=== PATIENT | female | born 1965 | race Caucasian/White ===

== ENCOUNTER 2024-02-22 15:12 | Observation (INO) | payer OTHER, SELFPAY ==
--- NOTE | ~2024-02-22 | XR_ITS ---
EXAMINATION: XR chest 2V DATE: 02/22/2024 16:17 INDICATION: Weakness. Low back pain. Abdominal pain. TECHNIQUE: Frontal and lateral views of the chest were obtained. COMPARISON: None. FINDINGS: There is no pneumonia, pleural effusion, or pneumothorax. The heart size is normal. IMPRESSION: 1. No acute cardiopulmonary disease. Reviewed, dictated and finalized at location A.
--- NOTE | ~2024-02-22 | CT_ITS ---
EXAMINATION: CT diagnostic chest wo con DATE: 02/22/2024 18:23 INDICATION: fall, pulmonary nodules, follow up CT abd TECHNIQUE: Computed tomography (CT) of the chest was performed with 100 mL Omnipaque-350 intravenous contrast. Automated exposure control and iterative reconstruction technique were employed. The dose-l ength product was 139.27 mGy-cm. COMPARISON: X-ray chest and CT abdomen pelvis, same date. FINDINGS: CHEST: Thoracic aorta: Dilation of the ascending aorta to 4.3 cm. Heavy aortic calcified plaque. Lung parenchyma and airways: Focal subsegmental consolidation in the right upper lung. Cystic change in the bilateral upper lobes, possible cystic bronchiectasis/post infectious or inflammatory change. Subtle groundglass opacities in the right upper lobe. Scattered tree-in-bud opacities throughout the lungs. Innumerable pulmonary nodules. Thoracic inlet, axillae and chest wall: 1.6 cm left thyroid nodule. Mediastinum: No mass or lymphadenopathy. Heart and pericardium: Normal heart size. Aortic valve calcification. Small volume pericardial fluid. Coronary artery calcifications: Heavy. Pleura: No effusion or mass. Upper abdomen: Please refer to the report on the concurrent CT abdomen and pelvis for further details . Thoracic bones: Numerous lytic lesions in the spine. Endplate deformities at T2, T5, T7, T11, and T12 . IMPRESSION: Infectious/inflammatory changes in the lungs, possibly secondary to atypical infection. Innumerable pulmonary nodules concerning for metastatic disease. Small pericardial effusion. 1.6 cm left thyroid nodule, recommend nonemergent, outpatient thyroid ultrasound for further characte rization. Multiple lytic lesions in the spine with corresponding endplate deformities probably representing pat hologic fractures. Reviewed, dictated and finalized at location K. IMPRESSION: Infectious/inflammatory changes in the lungs, possibly secondary to atypical in fection. Innumerable pulmonary nodules concerning for metastatic disease. Small pericardial effusion. 1.6 cm left thyroid nodule, recommend nonemergent, outpatient thyroid ultrasoun d for further characterization. Multiple lytic lesions in the spine with corresponding endplate deformities pro bably representing pathologic fractures.
--- NOTE | ~2024-02-22 | CT_ITS ---
EXAMINATION: CT brain wo/w con DATE: 02/23/2024 09:35 INDICATION: Metastatic cancer. Vision change. TECHNIQUE: Computed tomography (CT) of the head was performed without and with 100 mL Omnipaque 350 i ntravenous contrast. The mA was adjusted according to patient size. Iterative reconstruction techniqu e was employed. The dose-length product was 1362.00 mGy-cm. COMPARISON: None FINDINGS: There are scattered areas of low attenuation in the cerebral white matter, which is within normal limits for the patient's age. There are old infarcts in the thalami bilaterally. The ventricle s are normal in size. The orbits are normal. The paranasal sinuses are clear. The mastoid air cells are normal. IMPRESSION: 1. No evidence of metastatic disease. 2. 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 Reviewed, dictated and finalized at location A.
--- NOTE | ~2024-02-22 | CT_ITS ---
EXAMINATION: CT abdomen pelvis w con DATE: 02/22/2024 16:57 INDICATION: Generalized abdominal pain. Back pain. Nausea and vomiting. TECHNIQUE: Computed tomography (CT) of the abdomen and pelvis was performed with 100 mL Omnipaque 350 intravenous contrast. Automated exposure control and iterative reconstruction technique were employe d. The dose-length product was 420.50 mGy-cm. COMPARISON: None. FINDINGS: The visualized portions of the lung bases posteriorly mild atelectasis. There are numerous scattered pulmonary nodules measuring up to 11 mm. No pleural effusion. The heart size is normal. The re are coronary artery calcifications. There is a small pericardial effusion. The liver demonstrates surface nodularity, consistent with cirrhosis. There are multiple hypodense masses in the liver measu ring up to 9 mm. The gallbladder, spleen, pancreas, and adrenal glands are normal. There is a striate d nephrogram in right kidney. There is mild atrophy of left kidney upper pole. There are no dilated l oops of bowel. The appendix is normal. There is calcified atherosclerosis of the aorta and many of th e other arteries. There are no pathologically enlarged lymph nodes. There are widespread lytic lesio ns of bone. There is an acute pathologic burst fracture of L5. There are age-indeterminate pathologic compression fractures of T7, T11, T12, L1, L2, and L3. There is a pathologic fracture of right L3 tr ansverse process. IMPRESSION: 1. Widespread lytic bone lesions and numerous pulmonary nodules, consistent with metastatic disease. Chest CT is recommended. 2. Small pericardial effusion. 3. Numerous pathologic fractures in the spine, some of which are acute and some of which are age-inde terminate. 4. Cirrhosis of the liver. 5. Small liver masses, which may be cysts or metastatic disease. Reviewed, dictated and finalized at location A. IMPRESSION: 1. Widespread lytic bone lesions and numerous pulmonary nodules, consistent wit h metastatic disease. Chest CT is recommended. 2. Small pericardial effusion. 3. Numerous pathologic fractures in the spine, some of which are acute and some of which are age-indeterminate. 4. Cirrhosis of the liver. 5. Small liver masses, which may be cysts or metastatic disease.
[2024-02-22 15:29] VITALS: BP 114/62; PULSE 83; RESP 17; TEMP 36.4; O2SAT 98
--- NOTE | 2024-02-22 15:48 | ECG_ITS ---
Measurements Intervals [place] Rate: 84 P: 27 VT: 152 QRS: -13 QRSD: 92 T: 43 QT: 364 QTc: 432 Interpretive Statements SINUS RHYTHM CONSIDER INFERIOR INFARCT, AGE INDETERMINATE NONSPECIFIC ST & T-WAVE ABNORMALITY- ANTEROLAT/HIGH LAT LEADS ABNORMAL ECG NO PREVIOUS ECG AVAILABLE FOR COMPARISON Electronically Signed On 02-22-2024 16:31:35 CDT by Adelso Hernandez D.O.
--- NOTE | 2024-02-22 15:49 | ED.WEAKNESS ---
HPI - Weakness General Chief complaint: Weakness <Treasure Wise PA-C - Last Filed: 02/22/24 15:51> Stated complaint: weak, vomiting, back pain x 3 weeks <Treasure Wise PA-C - Last Filed: 02/22/24 15:51> Time Seen by Provider: 02/22/24 17:04 <Treasure Wise PA-C - Last Filed: 02/22/24 15:51> Focused HPI: 58-year-old female with history of hypertension and hyperlipidemia presents with her daughter at bedside for generalized weakness x3 weeks. Patient is reporting diffuse abdominal pain, low back pain, exertional dyspnea. States she has been evaluated 2 times since the onset of symptoms at [place] [facility] and has been prescribed muscle relaxers without improvement. States she has been having difficulty ambulating around her house secondary to symptoms. She she reports nausea and dry heaving but denies emesis, chest pain, dysuria or hematuria, diarrhea, lower extremity edema. She is also reporting a productive cough. Patient smokes about 1/2 pack a day. GENERAL: Well-appearing, well-nourished, and in no acute distress. HEAD: Normocephalic, atraumatic. CHEST: Clear to auscultation. ?No respiratory distress. ABD: diffuse abdominal tenderness without guarding, rebound or rigidity. No CVA tenderness. HEART: Regular rate and rhythm.? NEURO: ?Alert and oriented x3. Patient screened in triage and initial orders placed.? ?Additional care and disposition to be based upon?diagnostic testing and treatment. <Treasure Wise PA-C - Last Filed: 02/22/24 15:51> Related Data Home medications: Home Medications Medication Instructions Recorded Confirmed ergocalciferol (vitamin D2) 1,250 1,250 mcg PO WEEKLY 02/22/24 02/22/24 mcg (50,000 unit) capsule hydrocodone 10 mg-acetaminophen 1 tablet PO BID PRN Pain 02/22/24 02/22/24 325 mg tablet ibuprofen 800 mg tablet 800 mg PO Q8H PRN Pain 02/22/24 02/22/24 lisinopril 20 1 tablet PO DAILY 02/22/24 02/22/24 mg-hydrochlorothiazide 25 mg tablet pravastatin 40 mg tablet 40 mg PO DAILY 02/22/24 02/22/24 verapamil 240 mg tablet,extended 240 mg PO HS 02/22/24 02/22/24 release <Treasure Wise PA-C - Last Filed: 02/22/24 15:51> Allergies/Adverse reactions: Allergies Allergy/AdvReac Type Severity Reaction Status Date / Time sulfamethoxazole AdvReac Hives Verified 02/22/24 21:58 [From Bactrim] trimethoprim [From Bactrim] AdvReac Hives Verified 02/22/24 21:58 <Treasure Wise PA-C - Last Filed: 02/22/24 15:51> Review of Systems Review of Systems: All systems as dictated in HPI <SYLVIA Mancilla Last Filed: 02/23/24 02:06> [facility] Past Medical History Medical History: Medical History (Updated 02/23/24 @ 09:41 by Carisa Jaime APRN) Chronic alcohol abuse Continuous dependence on cigarette smoking Essential hypertension Hyperlipidemia Vitamin D deficiency <Treasure Wise PA-C - Last Filed: 02/22/24 15:51> Surgical History Surgical History: Surgical History (Updated 02/23/24 @ 09:41 by Carisa Jaime APRN) History of section <SYLVIA Simon Last Filed: 02/22/24 15:51> Family History Family History: Family History (Updated 02/23/24 @ 05:36 by Mable Pagan DO) Unknown Unknown family medical history The patient was orphaned at and grew up in a [facility] in [place]. <Treasure Wise PA-C - Last Filed: 02/22/24 15:51> Social History Social History: Social History (Updated 02/23/24 @ 05:38 by Mable Pagan DO) Social History: Patient was originally . She has been with her long-term boyfriend of 20 years. Her boyfriend is her payee on her [place] disability checks due to the patient's baseline intellectual disability. She has smoked a pack of cigarettes per day since she was a teenager. She had 4 children. She drinks at least a 6 pack of beer a day. She used to occasionally use marijuana but
[2024-02-22 16:11] LABS: Basophils Absolute Auto 0.1 K/mm3 (0.0-0.1); Basophils Percent Auto 0.5 % (0.2-1.2); Eosinophils Absolute Auto 0.3 K/mm3 (0-0.3); Eosinophils Percent Auto 2.1 % (0-4.4); Hematocrit 39.2 % (37.0-47.0); Hemoglobin 14.2 g/dL (12.0-15.0); Immature Granulocyte Absolute 0.12 K/mm3 (0.00-0.031); Immature Granulocyte Percent A 0.9 % (0-0.5); Lymphocytes Absolute Auto 1.56 K/mm3 (0.9-3.2); Mean Corpuscular HGB Conc 36.2 g/dl (32-36); Mean Corpuscular Hemoglobin 34.1 pg (26-34); Mean Platelet Volume 10.3 fl (7.4-10.4); Monocytes Percent Auto 7.5 % (2.6-8.5); Platelet Count Result 175 k/mm3 (150-375); Red Blood Count 4.17 M/mm3 (4.2-5.4); Red Cell Distribution Width 12.8 % (11.5-14.5)
[2024-02-22 16:22] LABS: Alanine Aminotransferase 24 U/L (6-35); Albumin Level 4.5 g/dL (3.5-5.1); Alkaline Phosphatase 119 U/L (38-126); Anion Gap 9 mmol/L (4-12); Aspartate Amino Transferase 41 U/L (14-36); Blood Urea Nitrogen 17 mg/dL (7-17); Calcium 12.1 mg/dL (8.4-10.2); Carbon Dioxide 27 mmol/L (22-30); Chloride 89 mmol/L (98-107); Estimated CRCL calculation 79 ml/min; Estimated Glomerular Filt Rate > 60; Glucose 105 mg/dL (65-110); Lactic Acid Reflex 1.9 mmol/L (0.7-2.0); Lipase 60 U/L (23-300); Potassium 3.1 mmol/L (3.4-5.0); Sodium 125 mmol/L (137-145)
[2024-02-22 16:33] LABS: NT Pro B Type Natriuretic Pept 202 pg/mL (19.9-100); Troponin I 0.025 ng/mL (0.000-0.034)
[2024-02-22 16:48] LABS: Influenza A QL RT-PCR Negative (Negative); Influenza B QL RT-PCR Negative (Negative); RSV RNA, RT-PCR Negative (Negative); SARS-CoV-2 RNA PCR Negative (Negative)
[2024-02-22] MEDS: IBUPROFEN 400 MG TABLET 800 MG PO (17:48)
[2024-02-22] MEDS: ACETAMINOPHEN 500 MG TABLET 650 MG PO (17:49)
[2024-02-22] MEDS: POTASSIUM CHLORIDE 20 MEQ ER TABLET 40 MEQ PO (20:07)
[2024-02-22 20:15] LABS: INR 1.3; Prothrombin Time 16.5 Seconds (11.1-14.7)
[2024-02-22 20:16] LABS: Partial Thromboplastin Time 33.7 Seconds (22.3-36.8)
[2024-02-22] MEDS: NICOTINE (*PBKC) 21 MG PATCH 1 PATCH TRANSDERM (20:25)
[2024-02-22] MEDS: POTASSIUM CHLORIDE 20 MEQ PACKET (FOR LIQUID) PO (20:25)
--- NOTE | 2024-02-22 21:30 | ADMGEN ---
This patient, Efe Martínez, was admitted to [facility] Surg Room 311-01. Patient/family oriented to hospital policies and general routines including ID bracelet, bed and alarms, visiting hours, pain management, procedures, bathroom and other care routines, personal items, smoking policy, room service/diet, and visiting hours. Information on how to activate the Rapid Response Team has been discussed. Patient/Family are encouraged to report perceived risks to care and to ask questions if they do not understand what they are told or what they should do.
[2024-02-22 22:01] VITALS: BMI 25.5
[2024-02-22 22:04] VITALS: BP 115/65; PULSE 78; RESP 16; TEMP 36.5; O2SAT 95
[2024-02-22] MEDS: ACETAMINOPHEN 500 MG TABLET 1000 MG PO (22:04)
[2024-02-22] MEDS: SODIUM CHLORIDE 0.9% IV 1,000 ML 125 ML IV CONT (22:08)
[2024-02-22 22:19] LABS: Appearance Urine Clear (Clear); Bilirubin Urine Negative (Negative); Blood Urine Negative (Negative); Color Urine Yellow (Yellow); Glucose Urine UA Negative (Negative); Ketones Urine Negative (Negative); Leukocyte Esterase Ur Negative LEU/UL (Negative); Nitrate Urine Negative (Negative); Protein Urine Negative (Negative); Urobilinogen Urine 0.2 mg/dL (<2.0); pH Urine 6.5 (5.0-9.0)
[2024-02-22 22:50] LABS: Add Urine Microscopic? NO; Specific Grav Ur 1.037 (1.001-1.035)
[2024-02-23] MEDS: ACETAMINOPHEN 500 MG TABLET 1000 MG PO (05:07)
[2024-02-23] MEDS: ALPRAZolam (*CRX) 0.25 MG TABLET PO (05:07)
[2024-02-23] MEDS: SODIUM CHLORIDE 0.9% IV 1,000 ML 125 ML IV CONT (05:08)
--- NOTE | 2024-02-23 05:24 | PM.IMHP ---
H&P: HPI History of Present Illness Date/Time: 02/23/24 05:24 Chief Complaint: Weakness, back pain and abdominal pain for 3 weeks Narrative: 58-year-old female with a past medical history of alcoholism, essential hypertension, chronic tobacco use and hyperlipidemia who presented to the ER from home via private vehicle due to low back pain for 3 weeks. Patient reports that she is so weak that she has had to have someone help her stand for the last 3 weeks. She has started using a walker. Over the last several days she has developed intermittent episodes of nausea with vomiting of gastric content and some dry heaves. She went to [facility] twice and was sent home after being told she had a pulled muscle. She was given script for Chemclin. The patient tells me the pain is in her low back and indicates her entire abdomen hurts. She told me that the pain is there and cannot give me a descriptive as the type of pain. She has difficulty providing history due to her baseline intellectual disability. In the ER she had reported pain 9/10 in intensity. The patient was tearful multiple times during my evaluation base as she is aware that her CT in the ER demonstrated widespread lytic bone lesions with pathologic fractures in the spine in numerous pulmonary nodules and small liver masses versus cysts. She is aware that she likely has cancer and is terrified that she is going to . She denies having any diarrhea or changes in bowel habits. She denies any loss of bowel or bladder control. She reports that her legs are just weak. She is able the lift her legs from the bed but has difficulty holding them up against resistance. She denies any loss of sensation of her legs. She denies any shortness of breath. She does have occasional coughing but is long-term smoker and has smoked at least 1 pack of cigarettes per day since she was a teenager. She does drink a 6 pack of beer daily and has done so since she was around 18 years old. She does not have a scale at home and does not wear self. She denies her clothes getting any looser are any signs of weight loss. She reports that she has been having headaches for the last several weeks. She has noticed new double vision. She thinks that this is due to cataracts. She states that she is post have an appointment with an eye doctor coming up. Review of Systems Review of Systems: 12 systems were reviewed with pertinent positives and negatives per HPI. Except as documented in the HPI, all other systems were reviewed and are negative. Unfortunately the patient is a poor historian due to her history of intellectual disability. [facility] Past Medical History Medical History (Updated 02/23/24 @ 05:44 by Mable Pagan DO) Chronic alcohol abuse Continuous dependence on cigarette smoking Essential hypertension Hyperlipidemia Vitamin D deficiency Surgical History Surgical History (Updated 02/23/24 @ 05:35 by Mable Pagan DO) History of section Family History Family History (Updated 02/23/24 @ 05:36 by Mable Pagan DO) Unknown Unknown family medical history The patient was orphaned at and grew up in a [employer] children[facility] in [place]. Social History Social History (Updated 02/23/24 @ 05:38 by Mable Pagan DO) Social History: Patient was originally . She has been with her long-term boyfriend of 20 years. Her boyfriend is her payee on her so security disability checks due to the patient's baseline intellectual disability. She has smoked a pack of cigarettes per day since she was a teenager. She had 4 children. She drinks at least a 6 pack of beer a day. She used to occasionally use marijuana but does not do as much anymore. Smoking packs per day: 1 Smoking cigarettes per day: 20.0 Years smoked: 45 Smoking pack-years: 45.00 Smoking status: Current every day smoker Tobacco type: cigarettes Alcohol intake: current Drinks
[2024-02-23 06:00] VITALS: BP 140/67; PULSE 76; RESP 16; TEMP 36.1; O2SAT 94
[2024-02-23] MEDS: FAMOTIDINE 20 MG/2 ML VIAL IV PUSH (07:56)
[2024-02-23] MEDS: THIAMINE HCL 200 MG/2 ML VIAL 100 MG IV PUSH (07:57)
[2024-02-23] MEDS: HEPARIN SODIUM 5,000 UNITS/ML VIAL 5000 UNITS SUB-Q (07:57)
[2024-02-23] MEDS: hydroCHLOROthiazide 25 MG TABLET PO (07:58)
[2024-02-23] MEDS: lisinopriL 20 MG TABLET PO (07:58)
--- NOTE | 2024-02-23 09:36 | PDONCCN ---
HPI - Date of Consult Date/Time: 02/23/24 14:15 <MarcelinoAlverto Noy - 02/23/24 14:24> 02/23/24 09:36 <Carisa Jaime - 02/23/24 09:41> Requesting Physician: Jonny Gabriel MD <MarcelinoAlvertonegin Villafuerte - 02/23/24 14:24> Jonny Gabriel MD <Carisa Jaime - 02/23/24 09:41> Primary Care Provider: Tom Manriquez <Alverto Benson - 02/23/24 14:24> Tom Manriquez <Carisa Jaime - 02/23/24 09:41> - Consult Narrative Reason for consult: Metastatic Disease <Carisa Jaime - 02/23/24 09:41> Narrative: Efe Martínez is a 58 year old female <Alverto Benson - 02/23/24 14:24> Efe Martínez is a 58 year old female with a past medical history of HTN, HLD, tobacco use, and alcohol abuse who presented to the ED for 3 weeks of back pain and weakness. She reports going to [facility] whom sent her home without work up with muscle relaxers. She has continued to get weaker and is using a walker for assistance. She reports low back pain to her abdomen. Denies any abdominal pain. Has had some nausea and vomiting recently. She is a current every day smoker 1 pack/day for many years. She drinks a 6 pack/beer everyday. She denies any personal or familial history of malignancy. She has a difficult time providing information as she is emotional and has a intellectual disability. CT scan shows widespread lytic bone lesions with pathologic fractures in the spine and numerous pulmonary nodules and small liver masses versus cysts. Denies any fatigue, weight loss, fevers, chills, night sweats. <Carisa Jaime - 02/23/24 09:41> Review of Systems - Review of Systems All systems reviewed & are unremarkable except as noted in HPI and bel <Carisa Jaime - 02/23/24 09:47> [facility] Medical History: Medical History (This Medical Record has been edited. Action required.) Chronic alcohol abuse Continuous dependence on cigarette smoking Essential hypertension Hyperlipidemia Vitamin D deficiency <Alverto Benson - 02/23/24 14:24> Medical History (This Medical Record has been edited. Action required.) Chronic alcohol abuse Continuous dependence on cigarette smoking Essential hypertension Hyperlipidemia Vitamin D deficiency <Carisa Jaime 02/23/24 09:41> Surgical History: Surgical History (This Medical Record has been edited. Action required.) History of section <Alverto Benson - 02/23/24 14:24> Surgical History (This Medical Record has been edited. Action required.) History of section <Carisa Jaime - 02/23/24 09:41> Family History: Family History (Last Updated 02/23/24 @ 05:36 by Mable Pagan DO) Unknown Unknown family medical history The patient was orphaned at and grew up in a [employer] children[facility] home in [place]. <Alverto Benson - 02/23/24 14:24> Family History (Last Updated 02/23/24 @ 05:36 by Mable Pagan DO) Unknown Unknown family medical history The patient was orphaned at and grew up in a [employer] children[facility] home in [place]. <Carisa Jaime 02/23/24 09:41> - Social History Social History: Social History (This Medical Record has been edited. Action required.) Alcohol Use: Alcohol intake: current Drinks per week: 6 Substance Use: Substance use: never Others: Spiritual care concerns: No Smoking Status: Smoking status: Current every day smoker Tobacco type: cigarettes Smoking Pack-years: Smoking packs per day: 1 Smoking cigarettes per day: 20.0 Years smoked: 45 Smoking pack-years: 45.00 Social Determinants of Health: Do You Feel Safe in your Home?: Yes Has the Lack of Transportation Kept You From Medical Appointments or From Getting Medications?: No Within the Past 12 Months, Were You Worried Whether Your Food Would Run Out Before You Got Money to Buy More?: Never
[2024-02-23] MEDS: ONDANSETRON INJ 4 MG/2 ML VIAL IV PUSH (11:48)
[2024-02-23] MEDS: HYDROcodone/acetaminophen (*CRX) 10-325 MG TABLET 1 TAB PO (11:48)
--- NOTE | 2024-02-23 13:42 | PM.DS ---
DS: Admitting Diagnosis Discharge Date 02/23/2024: Admitting Diagnosis (1) Metastatic cancer: ?Qualifiers: ?Area of secondary neoplastic involvement:?unspecified site? Qualified Code(s):?C79.9 - Secondary malignant neoplasm of unspecified site ?Code(s): C79.9 - Secondary malignant neoplasm of unspecified site ?Status:?Acute (2) Double vision: ?Code(s): H53.2 - Diplopia ?Status:?Acute (3) Headache: ?Qualifiers: ?Headache chronicity pattern:?unspecified pattern??Headache type:?unspecified??Intractability:?intractable? Qualified Code(s):?R51.9 - Headache, unspecified ?Code(s): R51.9 - Headache, unspecified ?Status:?Acute (4) Continuous dependence on cigarette smoking: ?Code(s): F17.210 - Nicotine dependence, cigarettes, uncomplicated ?Status:?Acute (5) Cirrhosis: ?Qualifiers: ?Ascites presence:?without ascites??Hepatic cirrhosis type:?alcoholic cirrhosis? Qualified Code(s):?K70.30 - Alcoholic cirrhosis of liver without ascites ?Code(s): K74.60 - Unspecified cirrhosis of liver ?Status:?Acute (6) Chronic alcohol abuse: ?Code(s): F10.10 - Alcohol abuse, uncomplicated ?Status:?Acute (7) Intractable pain: ?Code(s): R52 - Pain, unspecified ?Status:?Acute (8) Generalized weakness: ?Code(s): R53.1 - Weakness ?Status:?Acute (9) Essential hypertension: ?Code(s): I10 - Essential (primary) hypertension ?Status:?Acute DS: Discharge Diagnosis Discharge Diagnosis (1) Intractable pain: Code(s): R52 - Pain, unspecified Status: Acute (2) Generalized weakness: Code(s): R53.1 - Weakness Status: Acute (3) Headache: Qualifiers: Headache type: unspecified Headache chronicity pattern: unspecified pattern Intractability: intractable Qualified Code(s): R51.9 - Headache, unspecified Code(s): R51.9 - Headache, unspecified Status: Acute (4) Double vision: Code(s): H53.2 - Diplopia Status: Acute (5) Essential hypertension: Code(s): I10 - Essential (primary) hypertension Status: Acute (6) Continuous dependence on cigarette smoking: Code(s): F17.210 - Nicotine dependence, cigarettes, uncomplicated Status: Acute (7) Cirrhosis: Qualifiers: Hepatic cirrhosis type: alcoholic cirrhosis Ascites presence: without ascites Qualified Code(s): K70.30 - Alcoholic cirrhosis of liver without ascites Code(s): K74.60 - Unspecified cirrhosis of liver Status: Acute (8) Chronic alcohol abuse: Code(s): F10.10 - Alcohol abuse, uncomplicated Status: Acute (9) Metastatic cancer: Qualifiers: Area of secondary neoplastic involvement: unspecified site Qualified Code(s): C79.9 - Secondary malignant neoplasm of unspecified site Code(s): C79.9 - Secondary malignant neoplasm of unspecified site Status: Acute (10) Nicotine dependence, cigarettes, with other nicotine-induced disorders: Code(s): F17.218 - Nicotine dependence, cigarettes, with other nicotine-induced disorders Status: Acute (11) Tobacco abuse counseling: Code(s): Z71.6 - Tobacco abuse counseling Status: Acute (12) Metastasis to liver of unknown origin: Code(s): C78.7 - Secondary malignant neoplasm of liver and intrahepatic bile duct; C80.1 - Malignant (primary) neoplasm, unspecified Status: Acute (13) Metastasis to lung of unknown origin: Code(s): C78.00 - Secondary malignant neoplasm of unspecified lung; C80.1 - Malignant (primary) neoplasm, unspecified Status: Acute DS: Summary Hospital Course Reason for hospitalization: Weakness, back pain and abdominal pain for 3 weeks Hospital Course: H&P: HPI History of Present Illness Date/Time: 02/23/24? 05:24 Chief Complaint: Weakness, back pain and abdominal pain for 3 weeks Narrative: 58-year-old female with a past medica
[2024-02-23 14:00] VITALS: BP 103/67; PULSE 87; RESP 16; TEMP 35.9; O2SAT 96
== END 2024-02-23 16:05 | disposition home or self-care (01) ==
LOC: ANHED 19:31 → ANH3MEDSUR 21:07
PROVIDERS: Physician Assistant; Admitting Provider Physician Assistant; Emergency Provider Physician Assistant; Visit Provider Family Medicine
DX: C78.7 Secondary malignant neoplasm of liver and intrahepatic bile duct (principal); C78.00 Secondary malignant neoplasm of unspecified lung; C80.1 Malignant (primary) neoplasm, unspecified; R52 Pain, unspecified; R53.1 Weakness; H53.2 Diplopia; K70.30 Alcoholic cirrhosis of liver without ascites; E87.6 Hypokalemia; F79 Unspecified intellectual disabilities; R94.31 Abnormal electrocardiogram [ECG] [EKG]; I10 Essential (primary) hypertension; R06.09 Other forms of dyspnea; Z99.89 Dependence on other enabling machines and devices; Z20.822 Contact with and (suspected) exposure to COVID-19; E78.5 Hyperlipidemia, unspecified; E04.1 Nontoxic single thyroid nodule; E55.9 Vitamin D deficiency, unspecified; F17.210 Nicotine dependence, cigarettes, uncomplicated; F10.10 Alcohol abuse, uncomplicated; Z86.73 Personal history of transient ischemic attack (TIA), and cerebral infarction without residual deficits; Z79.1 Long term (current) use of non-steroidal anti-inflammatories (NSAID); Z79.891 Long term (current) use of opiate analgesic; Z79.899 Other long term (current) drug therapy
CPT/HCPCS: 36415; 70470; 71046; 71250; 74177; 80053; 81003; 83605; 83690; 83880; 84484; 85025; 85610; 85730; 87637; 93005; 96361; 96374; 96375; 97161; 97166; 99285; A9270; G0378; J1644; J2405; J3411; J7030; Q9967